=== PATIENT | male | born 1980 | race Caucasian/White ===

== ENCOUNTER 2017-01-30 23:08 | Emergency (ER) | payer SELFPAY ==
[~2017-01-30] VITALS: Ht 177.8 cm; Wt 104.0 kg
[2017-01-30] MEDS ORDERED: SODIUM CHLORIDE 0.9% 1,000 ML IV ONE (23:26)
[2017-01-30] MEDS ORDERED: TETANUS, DIPHTHERIA, PERTUSSIS VAC/PF 0.5ML (>7YR OLD) IM ONE (23:30)
[2017-01-30] MEDS ORDERED: LACTATED RINGERS 1,000 ML IV SCH ×3 (23:40→23:45)
[2017-01-31 01:12] VITALS: BP 118/79
== END 2017-01-31 01:21 | disposition short-term general hospital (02) ==
LOC: ER 23:08
DX: T23.201A Burn of second degree of right hand, unspecified site, initial encounter (principal); T22.221A Burn of second degree of right elbow, initial encounter; T31.0 Burns involving less than 10% of body surface; F17.210 Nicotine dependence, cigarettes, uncomplicated; X08.8XXA Exposure to other specified smoke, fire and flames, initial encounter; Y93.89 Activity, other specified; Y92.89 Other specified places as the place of occurrence of the external cause; Y99.8 Other external cause status
CPT/HCPCS: 16020; 90471; 90715; 96360; 99291; J7030; J7120

== ENCOUNTER 2023-06-13 17:12 | Emergency (ER) | payer MEDICAID, OTHER ==
[~2023-06-13] VITALS: Ht 188 cm; Wt 96.0 kg
[2023-06-13 17:32] VITALS: BP 173/101; PULSE 91; RESP 16; TEMP 98.6; O2SAT 100
[2023-06-13] MEDS ORDERED: CEPHALEXIN 250MG CAPSULE PO ONE (18:30)
[2023-06-13] MEDS ORDERED: SULFAMETHOXAZOLE/TRIMETHOPRIM 800/160MG TABLET PO ONE (18:30)
[2023-06-13] MEDS: TETANUS, DIPHTHERIA, PERTUSSIS VAC/PF 0.5ML (>10YR OLD) IM ONE (19:07)
[2023-06-13] MEDS: CEPHALEXIN 250MG CAPSULE PO NR (19:08)
[2023-06-13] MEDS: SULFAMETHOXAZOLE/TRIMETHOPRIM 800/160MG TABLET PO NR (19:08)
[2023-06-13] MEDS ORDERED: SULF1TAB48 MT (19:18)
[2023-06-13] MEDS ORDERED: CEPH500C2 MT (19:18)
== END 2023-06-13 19:47 | disposition home or self-care (01) ==
LOC: ER 17:12
DX: L08.9 Local infection of the skin and subcutaneous tissue, unspecified (principal); Z98.890 Other specified postprocedural states
CPT/HCPCS: 73140; 90715; 90471; 99283; Z7610